=== PATIENT | female | born 1970 | race Caucasian/White ===

== ENCOUNTER 2024-03-12 22:18 | Emergency (ER) | payer BC, SELFPAY ==
[2024-03-12 22:19] VITALS: BP 179/92; PULSE 80; RESP 17; TEMP 36.4; O2SAT 99; BMI 34.3
--- NOTE | 2024-03-12 22:39 | CT_ITS ---
INDICATION: R flank pain EXAMINATION: CT ABDOMEN AND PELVIS WITHOUT CONTRAST - CT Abdomen And Pelvis W/O Contrast Injection TECHNIQUE: Helically acquired images were obtained of the abdomen and pelvis without oral or IV contrast. A radiation dose optimization technique was used for this scan. IV Contrast dosage and agent: None. Oral contrast: None. COMPARISON: June 05, 2014. FINDINGS: LOWER CHEST: Mild subsegmental atelectasis in the lower lungs.Mild calcified coronary atherosclerosis. No cardiomegaly or pericardial effusion.. LIVER: Homogeneous. No focal mass. GALLBLADDER AND BILIARY TREE: No calcified gallstones. No gallbladder distension or wall edema. No intra- or extrahepatic biliary ductal dilation. PANCREAS: No focal cystic or solid mass. SPLEEN: Normal size without focal cystic or solid mass. ADRENAL GLANDS: No nodules. KIDNEYS AND URETERS: Normal renal size and position. No hydronephrosis. PERITONEUM: No ascites or free air. No other fluid collection. BOWEL: No CT evidence of acute intracranial hemorrhage or injury. No small bowel distention or focal wall thickening. Normal appendix. Distal colonic diverticulosis without evidence of diverticulitis. . LYMPH NODES: No enlarged mesenteric or retroperitoneal lymph nodes. VESSELS: Aorta is non-dilated. URINARY BLADDER: Unremarkable. REPRODUCTIVE ORGANS: Unremarkable uterus. Bilateral tubal ligation clips are present. No evidence of adnexal mass.. ABDOMINAL WALL: No discrete abdominal or pelvic wall hernia. BONES: No lytic or blastic abnormality. CT/Abdomen/Pelvis without Cont IMPRESSION: Colonic diverticulosis without evidence of diverticulitis. No specific finding to explain flank pain. Electronically Signed: Ilan Stiles MD at 23:49 EDT ,
--- NOTE | 2024-03-12 22:40 | EDS_ITS ---
HPI HPI - GI History of Present Illness Chief Complaint: Flank Pain Informant: patient Narrative Narrative: Pain in the right low back that started gradually 3 days ago, suddenly severe tonight associate with nausea and wrapping around her right flank to her right mid abdomen. No history of kidney stones but concerned that may be what this is. No urinary symptoms. Has some chills but no fevers that she knows of. Chills were when she was in a lot of pain. It does not hurt worse to move. PFSH PFS Medical History (Updated 03/13/24 @ 00:[address] Yury Landon MD) DVT (deep venous thrombosis) Home Medications ?Medication ?Instructions ?Recorded ?Last Taken ?Type ciprofloxacin HCl 500 mg tablet 500 mg PO BID #14 TABLETS 03/13/24 Unknown Rx Allergy/AdvReac Type Severity Reaction Status Date / Time No Known Allergies Allergy Verified 03/12/24 22:20 Surgical History (Updated 03/12/24 @ 22:[address] Yury Landon MD) Tubal ligation status Social History Smoking Status: Never smoker ROS ROS ED Constitutional Constitutional ED: Reports chills; Denies fever(s) Eyes Eyes: Denies change in vision or diplopia ENT ENT ED: Denies rhinorrhea or sore throat Cardiovascular Cardiovascular: Denies chest pain or palpitations Respiratory/Chest Respiratory/Chest: Denies cough or dyspnea Gastrointestinal Gastrointestinal: Reports abdominal pain and nausea; Denies diarrhea or vomiting Genitourinary Genitourinary ED: Reports as per HPI and flank pain; Denies dysuria, hematuria or urinary frequency Musculoskeletal Musculoskeletal: Reports back pain; Denies neck pain Integumentary Denies abscess or rash Neurologic Neurologic: Denies headache(s), paresthesias or weakness Psychiatric Psychiatric: Denies suicidal thoughts EXAM Physical Exam Const Vital Signs: 03/12/24 22:19 03/12/24 23:29 03/13/24 00:40 Temperature 97.6 F L 98.1 F Temperature Source Temporal Pulse Rate 80 64 Respiratory Rate 17 16 Blood Pressure 179/92 H 163/95 H 145/65 H Blood Pressure Mean 121 117 91 Pulse Ox 99 98 Oxygen Delivery Method Room Air Positive well nourished and well developed General Appearance ED: well developed and NAD HEENT Reports moist mucous membranes normocephalic and atraumatic Eyes PERRL and EOMs intact bilaterally Neck full ROM and supple Resp normal respiratory effort and clear to auscultation bilaterally Cardio regular rate, regular rhythm and no murmurs GI non-tender and non-distended Auscultation: normoactive bowel sounds Palpation: soft Back/Spine General Back: CVA tenderness right (also able to reproduce w/ gentle palpation in affected area; nml inspection no rash) and other FROM Extremity normal to inspection General Extremety ED: Negative for edema, pulses abnormal or tenderness General Extremity: Negative for edema or pulses abnormal Neuro oriented x3, CN's II-XII intact bilaterally and no sensory deficits noted Sensorium / Orientation: awake and alert Motor Exam: strength 5/5 throughout Psych thought process normal Skin no rashes or lesions noted and no wounds MDM MDM MDM Narrative Medical decision making narrative: Patient's symptoms are consistent with renal colic, she does not have urinary symptoms of infection, making kidney stone the more likely diagnosis, but also differential includes intestinal etiologies, less likely to be a renal infarct given her age and health, less likely to be biliary colic since she has no abdominal tenderness or association with meals with regards to her pain. Labs are normal, I reviewed the CT images and the report which I agree with, there are no ureteral stones or hydronephrosis or any other acute inflammatory condition to explain the patient's flank pain. Despite getting Zofran, Toradol, morphine, she states that her pain was no better 10/10. She was then given fentanyl which temporarily took the edge off, followed by a dose of Norflex given my question on exam of a possible musculoskeletal component. On inspection of this area she does not have a rash to suggest shingles which is in the differential as well, we discussed what to do if she starts to get a rash within the next 48 hours. She indicates that is the distribution of the pain, for midline around the right flank to midline and one area so that is not out of the realm of possibility. Her urinalysis is a mixed bag; it is negative for blood, negative for nitrate, but showing 100 leukocytes esterase, 5-10 white blood cells, same number of epithelials, 0 bacteria but 4+ mucus. The mucus could indicate infection or could indicate stone, although the rest of the urinalysis argues against both. Since we have a CT showing no stone right now, and no hydronephrosis which we would most likely see if the patient had a stone that she just passed although that is not impossible, I am going to to send her urine for culture and treat her empirically for pyelonephritis with Cipro for 1 week. She really wants to go home right now with her . Therefore were going to skip the Rocephin IV that traditionally we would give, the recent antibiogram shows 83% sensitivity to ciprofloxacin with regards to common E. coli, which is reasonable to use empirically in this situation. Advised the patient have close outpatient follow-up. Lab Data Attestation: I reviewed the patient's lab results. Labs: Laboratory Results - last 24 hr 03/12/24 03/13/24 22:37 00:06 WBC 7.7 RBC 4.61 Hgb 14.0 Hct 43.1 MCV 93.5 MCH 30.4 MCHC 32.5 RDW Std Deviation 43.4 RDW Coeff of Juanito 12.6 Plt Count 296 MPV 9.6 Immature Gran % (Auto) 0.100 Neut % (Auto) 44.7 L Lymph % (Auto) 45.4 H [place] % (Auto) 7.6 Eos % (Auto) 1.4 Baso % (Auto) 0.8 Absolute Neuts (auto) 3.4 Absolute Lymphs (auto) 3.48 Nucleated RBC % 0 Sodium 141 Potassium 3.8 Chloride 108 H Carbon Dioxide 27.0 Anion Gap 6 BUN 17 Creatinine 0.92 Estim Creat Clear Calc 74.48 Est GFR (MDRD) Af Amer 81 Est GFR (MDRD) Non-Af 67 BUN/Creatinine Ratio 18.4 Glucose 148 H Calcium 9.5 Urine Color Yellow Urine Clarity Clear Urine pH 5.0 Ur Specific [place] 1.020 Urine Protein Negative Urine Glucose (UA) Normal Urine Ketones Negative Urine Occult Blood Negative Urine Nitrite Negative Urine Bilirubin Negative Urine Urobilinogen Normal Ur Leukocyte Esterase 100 H Urine RBC 0-5 SEEN Urine WBC 5-10 SEEN Ur Squamous Epith Cells 5-10 SEEN Urine Bacteria 0 SEEN Hyaline Casts 0-5 SEEN Urine Mucus 4+ Radiography Diagnostic Testing: Clinical Impression(s) from Imaging Studies Abdomen/Pelvis CT 03/12/24 22:39 IMPRESSION: Colonic diverticulosis without evidence of diverticulitis. No specific finding to explain flank pain. Electronically Signed: Ilan Stiles MD at 23:49 EDT , Discharge Plan Triage Chief Complaint: Flank Pain ED Provider: Yury Landon Dx/Rx/DC Orders Clinical Impression: Acute right flank pain Instructions: ED Flank Pain, Uncertain Cause Prescriptions: New ciprofloxacin HCl 500 mg tablet 500 mg PO BID Qty: 14 0RF Primary Care Provider: Care Physician,No Primary Referrals: Doctor,Your [Non-Staff] - 3-5 Days if not improving Print Language: Faroese Disposition Disposition: Home, Self Care
[2024-03-12] MEDS: Ondansetron 4 MG/2 ML Vial IV (22:42)
[2024-03-12] MEDS: Morphine 4 MG/ML Syringe IV (22:44)
[2024-03-12] MEDS: Ketorolac 30 MG/ML Syringe IV (22:47)
[2024-03-12 22:55] LABS: Absolute Lymphocyte Count 3.48 X10^3/uL (0.83-4.51); Absolute Neutrophil Count 3.4 X10^3/uL (2.0-7.7); Basophil# 0.06 X10^3/uL; Basophil% 0.8 % (0-1); Eosinophil# 0.11 X10^3/uL; Eosinophils% 1.4 % (0-5); Hematocrit 43.1 % (37-47); Lymphocyte # 3.48 X10^3/ul (0.83-4.51); Lymphocyte % 45.4 % (19-41); Mean Corp Hgb Conc 32.5 g/dL (32-36); Mean Corpuscular Hgb 30.4 pg (27.0-32.0); Mean Corpuscular Volume 93.5 fL (81-99); Mean Platelet Vol. 9.6 fl (6.2-12.0); Monocyte# 0.58 X10^3/uL; Monocyte% 7.6 % (0-10); NRBC Flagged by Analyzer 0 % (0-5); Neutrophil # 3.42 X10^3/uL (2.7-7.7); Neutrophil % 44.7 % (47-70); Platelet Count 296 K/mm3 (150-450); RBC Distribution Width CV 12.6 % (11.6-14.6); RBC Distribution Width SD 43.4 fl (35.1-43.9); Red Blood Count 4.61 M/mm3 (4.2-5.4); White Blood Count 7.7 K/mm3 (4.4-11.0)
[2024-03-12 23:15] LABS: Anion Gap 6 (5-15); BUN 17 mg/dL (7-18); BUN/Creat Ratio 18.4 RATIO (10-20); Calcium,Total 9.5 mg/dL (8.5-10.1); Chloride 108 mmol/L (98-107); Creatinine, Serum 0.92 mg/dL (0.55-1.02); EST Glomerular Filtration Rate 67 mL/min (>60); Est Glom Filt Rate - Afr Amer 81 mL/min (>60); Estimated Creatinine Clearance 74.48 ml/min; Glucose 148 mg/dL (74-106); Potassium 3.8 mmol/L (3.5-5.1); Sodium Level 141 mmol/L (136-145)
[2024-03-12] MEDS: fentaNYL 100 MCG/2 ML Ampul 50 MCG IV (23:23)
[2024-03-12 23:29] VITALS: BP 163/95
[2024-03-13 00:17] LABS: Bacteria 0 SEEN /hpf (None Seen)
[2024-03-13 00:21] LABS: Color, Urine Yellow (Yellow); Glucose, Dipstick Normal (Normal); Ketone-Dipstick Negative (Negative); Leukocyte Esterase-Dipstick 100 /ul (Negative); Nitrite-Dipstick Negative (Negative); Occult Blood-Urine Negative /ul (Negative); Protein-Dipstick Negative (Negative); Urine Bilirubin Dipstick Negative (Negative); Urine Clarity Clear (Clear); Urine Urobilinogen Normal (Normal)
[2024-03-13 00:31] LABS: Red Blood Cells-Urine 0-5 SEEN /hpf (0-5); Squamous Epithelial Cells - UA 5-10 SEEN /hpf (5-10); White Blood Cells 5-10 SEEN /hpf (0-5)
[2024-03-13 00:32] LABS: Hyaline Cast 0-5 SEEN /lpf (0-5); Mucous, Urine 4+ /hpf (<or=2+)
[2024-03-13] MEDS: Orphenadrine 60 MG/2 ML Ampul IV (00:35)
[2024-03-13 00:40] VITALS: BP 145/65; PULSE 64; RESP 16; TEMP 36.7; O2SAT 98
[2024-03-13] MEDS: Ciprofloxacin 500 MG Tablet PO (01:03)
== END 2024-03-13 01:04 | disposition home or self-care (01) ==
PROVIDERS: Emergency Provider Emergency Medicine; Visit Provider Emergency Medicine
DX: R10.9 Unspecified abdominal pain (principal); Z98.51 Tubal ligation status
CPT/HCPCS: 74176; 80048; 81001; 85025; 87086; 87088; 96374; 96375; 99282; J7030; A4216; J2405

== ENCOUNTER 2024-03-13 12:01 | Emergency (ER) | payer BC, SELFPAY ==
[2024-03-13 12:02] VITALS: BP 152/70; PULSE 73; RESP 16; TEMP 36.2; O2SAT 96; BMI 34.2
--- NOTE | 2024-03-13 12:51 | EX.ED.DYSGE1 ---
HPI History of Present Illness Chief Complaint: Flank Pain Informant: patient Narrative Narrative: Patient presents secondary to continued right flank pain. Patient was seen overnight with right flank pain. Lab work and CT scan were unremarkable. Urinalysis showed a lot of mucus. She was given analgesics with some improvement in her pain. She was given a week of Cipro for possible early pyelonephritis. Patient was advised to monitor her for any rash to her right flank as was felt that she may have early shingles given her degree of pain. Patient presents back today due to pain. She is on Cipro but was not given anything for pain. She tried 600 mg of ibuprofen this morning without improvement. [facility] Medical History DVT (deep venous thrombosis) Home Medications ?Medication ?Instructions ?Recorded ?Last Taken ?Type ciprofloxacin HCl 500 mg tablet 500 mg PO BID #14 TABLETS 03/13/24 Unknown Rx cyclobenzaprine 10 mg tablet 10 mg PO TID PRN Muscle Spasm #20 03/13/24 Unknown Rx TABLETS naproxen 500 mg tablet (Naprosyn) 500 mg PO BID PRN pain #20 tabs 03/13/24 Unknown Rx oxycodone-acetaminophen 5 mg-325 1 tab PO Q8H PRN pain 3 days #10 03/13/24 Unknown Rx mg tablet (Percocet) tabs Allergy/AdvReac Type Severity Reaction Status Date / Time No Known Allergies Allergy Verified 03/13/24 12:15 Surgical History Tubal ligation status Social History Smoking Status: Never smoker ROS ROS ED Constitutional Constitutional ED: Denies chills or fever(s) Eyes Eyes: Denies discharge from eye(s) ENT ENT ED: Denies discharge from eye(s), rhinorrhea or sore throat Cardiovascular Cardiovascular: Denies chest pain or palpitations Respiratory/Chest Respiratory/Chest: Denies cough or dyspnea Gastrointestinal Gastrointestinal: Reports abdominal pain; Denies diarrhea, nausea or vomiting Genitourinary Genitourinary ED: Denies difficulty urinating or dysuria Musculoskeletal Musculoskeletal: Reports back pain; Denies extremity pain Integumentary Denies Abrasions or rash Neurologic Neurologic: Denies headache(s) or weakness Psychiatric Psychiatric: Denies anxiety or depression Allergic/Immunologic Allergic/Immunologic ED: Denies lip swelling or urticaria EXAM Physical Exam Const Vital Signs: 03/13/24 12:02 03/13/24 14:02 Temperature 97.1 F L 97.1 F L Temperature Source Temporal Oral Pulse Rate 73 68 Respiratory Rate 16 15 Blood Pressure 152/70 H Blood Pressure Mean 97 Pulse Ox 96 98 Oxygen Delivery Method Room Air Room Air Positive well nourished and well developed General Appearance ED: well developed HEENT Reports moist mucous membranes Eyes EOMs intact bilaterally Chest Wall inspection of chest normal and palpation of chest normal Resp normal respiratory effort and clear to auscultation bilaterally Cardio regular rate and regular rhythm GI non-tender Palpation: soft Back/Spine Back/Spine Narrative: Mildly reproducible tenderness in the right lumbar paraspinal muscles. No overlying skin change. No midline lumbar tenderness. Extremity normal to inspection Neuro oriented x3 and no sensory deficits noted Motor Exam: strength 5/5 throughout Psych mental status grossly normal Skin no rashes or lesions noted MDM MDM MDM Narrative Medical decision making narrative: It appears patient had the best pain control last evening with fentanyl and Norflex. This is repeated for her today. We will recheck labs and urinalysis to evaluate for any acute changes. History & Record Review Discussion w/independent historian: Patient Additional record(s) reviewed:: Prior ED visit and Prior labs Lab Data Attestation: I reviewed the patient's lab results. Labs: Laboratory Results - last 24 hr 03/13/24 03/13/24 12:55 13:35 WBC 8.9 RBC 4.54 Hgb 13.4 Hct 43.0 MCV 94.7 MCH 29.5 MCHC 31.2 L RDW Std Deviation 44.3 H RDW Coeff of Juanito 12.7 Plt Count 289 MPV 9.5 Immature Gran % (Auto) 0.200 Neut % (Auto) 76.4 H Lymph % (Auto) 17.5 L [place] % (Auto) 5.4 Eos % (Auto) 0.2 Baso % (Auto) 0.3 Absolute Neuts (auto) 6.8 Absolute Lymphs (auto) 1.55 Nucleated RBC % 0 Sodium 139 Potassium 4.0 Chloride 108 H Carbon Dioxide 25.0 Anion Gap 6 BUN 14 Creatinine 0.89 Estim Creat Clear Calc 76.86 Est GFR (MDRD) Af Amer 84 Est GFR (MDRD) Non-Af 69 BUN/Creatinine Ratio 15.7 Glucose 124 H Calcium 9.4 Urine Color Yellow Urine Clarity Clear Urine pH 5.0 Ur Specific [place] 1.025 Urine Protein Negative Urine Glucose (UA) Normal Urine Ketones Negative Urine Occult Blood Negative Urine Nitrite Negative Urine Bilirubin Negative Urine Urobilinogen Normal Ur Leukocyte Esterase 25 H Urine RBC 0-5 SEEN Urine WBC 0-5 SEEN Ur Squamous Epith Cells 0-5 SEEN Urine Bacteria 1+ Urine Mucus 3+ Treatment and Re-Evaluation :: CBC remains unremarkable with normal white count of 8.9 with 76% neutrophils. Hemoglobin is 13.4. Chemistry studies unremarkable with normal renal function. Glucose is 124. Urinalysis shows 1+ bacteria with no other signs of infection. Patient is currently on Cipro. I do not think she needs repeat imaging at this time. Patient will be given a prescription for Percocet, Naprosyn, and Flexeril. We did discuss that she does have focal tenderness in the lumbar paraspinal muscles on exam but correlate with the dermatome of her symptoms. This may be musculoskeletal in nature. She is given close return instructions. Discharge Plan Triage Chief Complaint: Flank Pain ED Provider: Meg Chinchilla Dx/Rx/DC Orders Clinical Impression: Acute right flank pain Instructions: ED Flank Pain, Uncertain Cause Prescriptions: New oxycodone-acetaminophen [Percocet] 5-325 mg tablet 1 tab PO Q8H PRN (Reason: pain) 3 Days Qty: 10 0RF naproxen [Naprosyn] 500 mg tablet 500 mg PO BID PRN (Reason: pain) Qty: 20 0RF cyclobenzaprine 10 mg tablet 10 mg PO TID PRN (Reason: Muscle Spasm) Qty: 20 0RF No Action ciprofloxacin HCl 500 mg tablet 500 mg PO BID Qty: 14 0RF Primary Care Provider: Care Physician,No Primary Referrals: Andriy Allen MD [Med Staff - [employer]] - 1-2 Weeks Care Physician,No Primary [Primary Care Provider] - Print Language: Luxem[place]ish Disposition Disposition: Home, Self Care
[2024-03-13 13:08] LABS: Absolute Lymphocyte Count 1.55 X10^3/uL (0.83-4.51); Absolute Neutrophil Count 6.8 X10^3/uL (2.0-7.7); Basophil# 0.03 X10^3/uL; Basophil% 0.3 % (0-1); Eosinophil# 0.02 X10^3/uL; Eosinophils% 0.2 % (0-5); Hemoglobin 13.4 g/dL (12.0-15.0); Lymphocyte # 1.55 X10^3/ul (0.83-4.51); Lymphocyte % 17.5 % (19-41); Mean Corp Hgb Conc 31.2 g/dL (32-36); Mean Corpuscular Hgb 29.5 pg (27.0-32.0); Mean Corpuscular Volume 94.7 fL (81-99); Mean Platelet Vol. 9.5 fl (6.2-12.0); Monocyte# 0.48 X10^3/uL; Monocyte% 5.4 % (0-10); NRBC Flagged by Analyzer 0 % (0-5); Neutrophil # 6.76 X10^3/uL (2.7-7.7); Neutrophil % 76.4 % (47-70); Platelet Count 289 K/mm3 (150-450); RBC Distribution Width CV 12.7 % (11.6-14.6); RBC Distribution Width SD 44.3 fl (35.1-43.9); Red Blood Count 4.54 M/mm3 (4.2-5.4); White Blood Count 8.9 K/mm3 (4.4-11.0)
[2024-03-13] MEDS: Orphenadrine 60 MG/2 ML Ampul IV (13:12)
[2024-03-13] MEDS: fentaNYL 100 MCG/2 ML Ampul 50 MCG IV (13:12)
[2024-03-13] MEDS: 0.9% Normal Saline (1000mL) 1,000 ML 150 ML IV (13:12)
[2024-03-13 13:20] LABS: Anion Gap 6 (5-15); BUN 14 mg/dL (7-18); BUN/Creat Ratio 15.7 RATIO (10-20); Calcium,Total 9.4 mg/dL (8.5-10.1); Chloride 108 mmol/L (98-107); Creatinine, Serum 0.89 mg/dL (0.55-1.02); EST Glomerular Filtration Rate 69 mL/min (>60); Est Glom Filt Rate - Afr Amer 84 mL/min (>60); Estimated Creatinine Clearance 76.86 ml/min; Glucose 124 mg/dL (74-106); Sodium Level 139 mmol/L (136-145)
[2024-03-13 13:47] LABS: Color, Urine Yellow (Yellow); Glucose, Dipstick Normal (Normal); Ketone-Dipstick Negative (Negative); Leukocyte Esterase-Dipstick 25 /ul (Negative); Nitrite-Dipstick Negative (Negative); Occult Blood-Urine Negative /ul (Negative); Protein-Dipstick Negative (Negative); Specific Gravity, Urine 1.025 (1.002-1.030); Urine Bilirubin Dipstick Negative (Negative); Urine Clarity Clear (Clear); Urine Urobilinogen Normal (Normal)
[2024-03-13 14:02] VITALS: PULSE 68; RESP 15; TEMP 36.2; O2SAT 98
[2024-03-13 14:03] LABS: Mucous, Urine 3+ /hpf (<or=2+)
[2024-03-13 14:04] LABS: Bacteria 1+ /hpf (None Seen); Squamous Epithelial Cells - UA 0-5 SEEN /hpf (5-10)
[2024-03-13 14:05] LABS: Red Blood Cells-Urine 0-5 SEEN /hpf (0-5); White Blood Cells 0-5 SEEN /hpf (0-5)
[2024-03-13 14:51] VITALS: BP 138/76; PULSE 82; RESP 16; TEMP 36.7; O2SAT 96
== END 2024-03-13 14:53 | disposition home or self-care (01) ==
PROVIDERS: Emergency Provider Emergency Medicine; Visit Provider Emergency Medicine
DX: R10.9 Unspecified abdominal pain (principal); Z98.51 Tubal ligation status
CPT/HCPCS: 80048; 81001; 85025; 96361; 96374; 96375; 99283; A4216